=== PATIENT | female | born 1960 | race Caucasian/White ===

== ENCOUNTER 2018-12-03 15:47 | Outpatient (RCR) | payer MEDICAID, SELFPAY | END 2018-12-25 23:59 | LOC: WC 15:47 | PROVIDERS: Visit Provider Nurse Practitioner Family | DX: Z09 Encounter for follow-up examination after completed treatment for conditions other than malignant neoplasm (principal) ==

== ENCOUNTER 2018-12-18 15:13 | Outpatient (RCR) | payer MEDICAID, SELFPAY ==
--- NOTE | 2018-12-23 15:58 | HP.OTEVAL_ITS ---
Patient's Visit Information DAMIÁN OH is a 58 year old F, referred to Occupational Therapy by Keya Caballero MD, with a diagnosis of Bilateral LE lymphedema. Date of Evaluation: 12/18/18 Occupational Therapist: CATHERINE Bajwa/Rafat, CHT - Subjective Subjective: This 58 year old female was seen for OT eval with dx of LE lymphedema. Pt states she has been struggling with LE edema in Bilateral LE for a few months now. pt states she was wrapping her LE due to cellulits and takes a water pill. Pt has not used compression socks or alternatives as velcro closer compression socks because her cobol engineer will not approve use of compression socks on bilateral LE due to CHF. - ADLs Comments: Pt reports limited ability to stand or ambulate long distances due to swelling in her LE and neuropathy in her feet. Pt does ambulate with WW. - Pain bilateral LE 5 - Objective Objective/Observation: pt demo with swelling in feet and small water blisters on her shins just abover her ankles. pt states she is using a cream and wrapping but did not arrive with legs wapped today. pt states she uses gaze waps for her LE. - Lymphedema (Circumferential Measure) Mid-foot: right 30.5cm left 28cm Ankle: right 34cm left 34cm Lower calf: right 41cm left 51cm Largest calf: right 45 left 58cm Below knee: right 45 left 50cm - Lower Limb Functional Index Lower Extremity Functional Score: 12 - Goals Demonstrate a 20% reduction in edema by d/c: Yes Demonstrate adequate knowledge skin care/prec by 2nd week: Yes Demonstrate adequate knowledge therapeutic exercises by d/c: Yes - Rehabilitation General Assessment: Pt arrives 20 min late for lymphedema eval- pt demo swelling in LE and would benefit from compression socks, or use of compression alternative. Due to pt reporting her cobol engineer will not approve her wearing compression socks at this time she in not open to discussion of the benefits, but was open to lymphedema ex. Pt was ed. on lymph stim ex to stimulate fluid circulation. Therapist ed. pt on tx options for swelling but due to cobol engineer not approving compression socks, pt limited to use of compression devices. At this time pt agree to performing lymph stim ex. pt given handout and demo understanding of ex. pt to follow up in 2 weeks to check LE limb size and states she would check with cobol engineer to see if she can wear compression socks. Rehabilitation Potential: Questionable - Anticipated Interventions Anticipated Interventions: Education re Diagnosis, Manual Lymph Drainage, Education re Life-long lymphedema Management, Education re Skin Care and Precautions, Caregiver Training, Home Program - Visit Plan Frequency: Every Other Week Duration: 2 Weeks TEXT: Thank you for the opportunity to evaluate your patient. For Medicare and Medicare HMO plans, please review the plan of care and approve it. It will need to be FAXED BACK to us at [phone] for Medicare purposes. Please let me know if there are questions or concerns regarding this plan of care. Physician Signature: Date:
--- NOTE | 2019-04-16 18:23 | HP.OT.NRP ---
HP - Discharge Summary - Patient Information DAMIÁN OH was seen in my office for initial evaluation on 12/18/18. The following Plan of Care was established for this patient: Initial Frequency: Every Other Week Initial Duration: 2 Weeks - Anticipated Interventions Anticipated Interventions: Education re Diagnosis, Manual Lymph Drainage, Education re Life-long lymphedema Management, Education re Skin Care and Precautions, Caregiver Training, Home Program This patient was last seen in our office 12/18/18. Pertinent comments regarding their Occupational therapy will appear below: Pt seen for eval only- no further apts scheduled at this time. due to time lapse in care pt d/c at this time. At this point I will be discontinuing this patient from occupational therapy. I would be happy to see this patient again in the future if found appropriate by the physician. Thank you! Prema Capellan, OTR/L, CHT
== END 2018-12-18 19:00 | disposition home or self-care (01) ==
LOC: OT 15:13
DX: I89.0 Lymphedema, not elsewhere classified (principal)
CPT/HCPCS: 97110; 97166